=== PATIENT | male | born 1955 | race Caucasian/White ===

== ENCOUNTER 2018-02-02 10:08 | Emergency (ER) | payer SELFPAY ==
[~2018-02-02] VITALS: Ht 172.7 cm; Wt 90.0 kg
[2018-02-02] MEDS ORDERED: ATOR10TA PO (10:12)
[2018-02-02] MEDS ORDERED: OMEP10CA4 PO (10:12)
[2018-02-02] MEDS ORDERED: CLOP75TA16 PO (10:12)
[2018-02-02 10:54] LABS: BASOPHILS % 0.4 % (0.0-2.0); EOSINOPHILS % 1.1 % (0.0-5.0); HEMATOCRIT. 45.7 % (42.0-52.0); HEMOGLOBIN. 15.3 g/dL (14.0-18.0); LYMPHOCYTES % 29.3 % (20.0-50.0); MEAN CORPUSCULAR HEMOGLOBIN 32.7 pg (28.0-32.0); MEAN CORPUSCULAR VOLUME 97.3 fL (80.0-94.0); MEAN PLATELET VOLUME 7.9 fl (7.4-10.4); MONOCYTES % 7.1 % (2.0-8.0); NEUTROPHILS % 62.1 % (40.0-76.0); PLATELET 171 x1000/uL (130-400); RED BLOOD CELL COUNT 4.69 mill/uL (4.7-6.1); RED CELL DISTRIBUTION WIDTH 15.8 % (11.6-14.6)
[2018-02-02 10:58] LABS: CHLORIDE 107 mEq/L (98-107)
[2018-02-02] MEDS ORDERED: DILTIAZEM HCL 125 MG in DEXT 5% WATER 100 ML IV ONE (11:00)
[2018-02-02] MEDS ORDERED: DILTIAZEM HCL 5MG/ML 5ML VIAL IV ONE (11:00)
[2018-02-02] MEDS ORDERED: ADENOSINE 3 MG/ML 2ML VIAL IV ONE ×2 (11:15→13:00)
[2018-02-02] MEDS ORDERED: AMIODARONE HCL 900 MG in DEXT 5% WATER 482 ML IV STA (11:43)
[2018-02-02] MEDS ORDERED: AMIODARONE HCL 150 MG in DEXT 5% WATER 100 ML IV ONE (11:45)
[2018-02-02] MEDS ORDERED: AMIODARONE HCL 900 MG in DEXT 5% WATER 482 ML IV NR (12:00)
[2018-02-02] MEDS ORDERED: AMIODARONE HCL 150 MG in DEXT 5% WATER 100 ML IV NR (12:00)
[2018-02-02] MEDS ORDERED: ASPIRIN 325MG TABLET PO ONE (12:15)
[2018-02-02] MEDS ORDERED: IPRATROPIUM BROMIDE (0.02%) 0.5MG/2.5ML NEB HHN STA (13:13)
[2018-02-02] MEDS ORDERED: ALBUTEROL (0.083%) 2.5MG/3ML NEB HHN STA ×2 (13:13→14:22)
[2018-02-02] MEDS ORDERED: DIGOXIN 500MCG/2ML AMP IV NR (13:15)
[2018-02-02] MEDS ORDERED: ENOXAPARIN 80MG/0.8ML SYR SUBCUT ONE (13:30)
[2018-02-02] MEDS ORDERED: METHYLPREDNISOLONE SOD SUCC 125 MG/2 ML VIAL IV ONE (14:30)
[2018-02-02] MEDS ORDERED: ALBUTEROL (0.083%) 2.5MG/3ML NEB ONE (14:30)
[2018-02-02] MEDS ORDERED: PROPOFOL 200MG/20ML VIAL IV ONE (14:30)
[2018-02-02 20:06] VITALS: BP 143/80
== END 2018-02-02 20:09 | disposition short-term general hospital (02) ==
LOC: ER 10:08 → EDBEDREQ 13:07 → EDBEDREQTM 13:07 → CANRESERV 13:15 → ENRESERV 13:15 → CANBEDREQ 15:09 → ER 20:09
DX: M62.262 Nontraumatic ischemic infarction of muscle, left lower leg (principal); I47.1 Supraventricular tachycardia; J98.01 Acute bronchospasm; I44.5 Left posterior fascicular block; I45.10 Unspecified right bundle-branch block; I10 Essential (primary) hypertension; Z86.73 Personal history of transient ischemic attack (TIA), and cerebral infarction without residual deficits; Z91.81 History of falling
CPT/HCPCS: 36415; 71045; 80053; 83735; 83880; 84484; 85025; 93005; 93923; 94640; 94644; 96365; 96366; 96372; 96375; 99152; 99291; J0282; J1160; J1650; J2930; J3490; J7611; J2704; J7060

== ENCOUNTER 2020-04-16 09:28 | Emergency (ER) | payer MEDICAID ==
[~2020-04-16] VITALS: Ht 167.6 cm; Wt 83.0 kg
[~2020-04-16 09:28] MED LIST: ATOR10TA PO; CLOP75TA4 PO; OMEP10CA5 PO
[2020-04-16 12:04] LABS: BASOPHILS % 0.7 % (0.0-2.0); EOSINOPHILS % 4.5 % (0.0-5.0); HEMOGLOBIN. 10.1 g/dL (14.0-18.0); LYMPHOCYTES % 39.9 % (20.0-50.0); MEAN CORPUSCULAR HEMOGLOBIN 31.1 pg (28.0-32.0); MEAN CORPUSCULAR VOLUME 98.5 fL (80.0-94.0); MEAN PLATELET VOLUME 6.9 fl (7.4-10.4); MONOCYTES % 5.4 % (2.0-8.0); NEUTROPHILS % 49.5 % (40.0-76.0); PLATELET 174 x1000/uL (130-400); RED BLOOD CELL COUNT 3.25 mill/uL (4.7-6.1); RED CELL DISTRIBUTION WIDTH 19.6 % (11.6-14.6)
[2020-04-16 12:13] LABS: CLARITY URINE CLEAR (CLEAR); COLOR URINE YELLOW (YELLOW); KETONES URINE NEGATIVE (NEGATIVE); LEUKOCYTE ESTERASE URINE NEGATIVE (NEGATIVE); NITRITE URINE NEGATIVE (NEGATIVE); OCCULT BLOOD URINE NEGATIVE (NEGATIVE); PROTEIN URINE NEGATIVE (NEGATIVE); SPECIFIC GRAVITY URINE 1.019 (1.005-1.030); UROBILINOGEN URINE 0.2 E.U./dL (0.2-1.0)
[2020-04-16 12:17] LABS: CHLORIDE 113 mEq/L (98-107)
[2020-04-16 12:22] LABS: ETHANOL BLOOD 215 mg/dL
[2020-04-16 12:26] LABS: CREATINE KINASE 110 IU/L (39-308)
[2020-04-16 12:50] LABS: *AMPHETAMINES SCREEN URINE NEGATIVE (NEGATIVE); *BARBITURATES SCREEN URINE NEGATIVE (NEGATIVE); *BENZODIAZEPINES SCREEN URINE PRESUMTIVE POSITIVE (NEGATIVE)
[2020-04-16 12:51] LABS: *COCAINE SCREEN URINE NEGATIVE (NEGATIVE); CANNABINOID URINE SCREEN NEGATIVE (NEGATIVE); METHADONE URINE SCREEN NEGATIVE (NEGATIVE); OPIATES URINE SCREEN NEGATIVE (NEGATIVE); PHENCYCLIDINE URINE SCREEN NEGATIVE (NEGATIVE)
[2020-04-16] MEDS ORDERED: FOLIC ACID 1 MG, THIAMINE HCL 100 MG, MVI, ADULT NO.1 10 ML in DEXTROSE 5% WATER 1,000 ML IV ONE ×4 (13:00)
[2020-04-16 15:34] VITALS: BP 115/65
== END 2020-04-16 15:46 | disposition home or self-care (01) ==
LOC: ER 09:51
DX: S00.81XA Abrasion of other part of head, initial encounter (principal); G93.40 Encephalopathy, unspecified; J45.909 Unspecified asthma, uncomplicated; I10 Essential (primary) hypertension; Z86.73 Personal history of transient ischemic attack (TIA), and cerebral infarction without residual deficits; Z88.2 Allergy status to sulfonamides; Z79.899 Other long term (current) drug therapy; X58.XXXA Exposure to other specified factors, initial encounter; Y93.89 Activity, other specified; Y92.89 Other specified places as the place of occurrence of the external cause; Y99.8 Other external cause status
CPT/HCPCS: 36415; 70450; 71045; 80053; 80305; 80307; 80320; 80329; 81003; 82140; 82550; 83690; 84484; 85025; 93005; 96365; 99285; J3411; J3490; J7070; G0480